=== PATIENT | female | born 1970 | race Caucasian/White ===

== ENCOUNTER → 2022-12-14 | Outpatient (CLI) | payer MEDICAID, MEDICARE | LOC: ORTHO 13:48 | PROVIDERS: ATTEND Orthopaedic Surgery | DX: M75.52 Bursitis of left shoulder (principal) | CPT/HCPCS: 20610; 99203 ==

== ENCOUNTER → 2023-02-15 | Outpatient (CLI) | payer MEDICAID | LOC: ORTHO 10:47 | PROVIDERS: ATTEND Orthopaedic Surgery | DX: M47.22 Other spondylosis with radiculopathy, cervical region (principal) | CPT/HCPCS: 99213 ==